=== PATIENT | male | born 1950 ===

== ENCOUNTER 2021-06-02 11:52 | Emergency (ER) | payer OTHER ==
[~2021-06-02 11:52] MED LIST: Iopamidol-370 76% 500 ML 1 ML ONE
[2021-06-02 12:15] LABS: #Basophils 0.1 thou/uL (0.0-0.2); #Eosinphils 0.4 thou/uL (0.0-0.7); #Monocytes 0.7 thou/uL (0.11-0.59); #Neutrophils 6.7 thou/uL (1.40-6.50); %Basophils 0.5 % (0.0-1.0); %Eosinophils 3.4 % (0.0-10.0); %Lymphocytes 27.5 % (21.0-51.0); %Monocytes 6.6 % (0.0-10.0); Mean Corpuscular HGB CONC 33.2 g/dL (32.0-36.0); Mean Corpuscular Hemoglobin 29.3 pg (27.0-31.0); Mean Corpuscular Volume 88.3 fL (78.0-98.0); Mean Platelet Volume 8.3 fL (7.4-10.4); Platelet Count 219 thou/uL (130-400); RBC Distribution Width 13.1 % (11.5-14.5); Red Blood Cell (RBC) Count 5.46 mill/uL (4.70-6.10); White Blood Cell (WBC) Count 10.8 thou/uL (4.8-10.8)
[2021-06-02 12:25] LABS: INR-International Normal Ratio 0.9; Prothrombin Time 12.6 sec (12.0-14.7)
[2021-06-02 12:26] LABS: PTT 28.8 sec (22.9-36.1)
[2021-06-02 12:35] LABS: ALT (SGPT) 15 U/L (8-55); AST (SGOT) 13 U/L (5-34); Albumin 4.6 g/dL (3.4-4.8); Alkaline Phosphatase 80 U/L (40-110); Anion Gap 15 mmol/L (10-20); BUN (Urea Nitrogen) 15 mg/dL (8.4-25.7); Bilirubin, Total 0.9 mg/dL (0.2-1.2); CK (CPK) 59 U/L (30-200); Calc. Creatinine Clearance 0 mL/min (70-130); Calcium 9.5 mg/dL (7.8-10.44); Carbon Dioxide 26 mmol/L (23-31); Chloride 102 mmol/L (98-107); Globulin 2.9 g/dL (2.4-3.5); Glucose 209 mg/dL (83-110); Potassium 3.7 mmol/L (3.5-5.1); Protein, Total 7.5 g/dL (5.8-8.1); Sodium 139 mmol/L (136-145)
[2021-06-02] MEDS ORDERED: Boostrix 0.5 ML (Tdap) VIAL ONE (12:56)
[2021-06-02] MEDS ORDERED: Ketorolac Tromethamine 30 MG/ML VIAL ONE (13:00)
== END 2021-06-02 13:21 | disposition home or self-care (01) ==
LOC: ERS 11:52
DX: S16.1XXA Strain of muscle, fascia and tendon at neck level, initial encounter (principal); S40.011A Contusion of right shoulder, initial encounter; S20.211A Contusion of right front wall of thorax, initial encounter; E11.9 Type 2 diabetes mellitus without complications; E78.5 Hyperlipidemia, unspecified; I10 Essential (primary) hypertension; Z87.442 Personal history of urinary calculi; V89.2XXA Person injured in unspecified motor-vehicle accident, traffic, initial encounter
CPT/HCPCS: 70450; 71045; 71260; 72125; 72170; 74177; 80053; 82550; 84484; 85025; 85610; 85730; 90471; 90715; 93005; 94760; 96374; G0390; J1885; Q9967